=== PATIENT | female | born 1945 | race Caucasian/White ===

== ENCOUNTER 2018-01-31 20:10 | Emergency (ER) | payer MEDICARE ==
[2018-01-31] MEDS: HYDROCODONE/APAP (5/325) TAB PO (20:29)
[2018-01-31] MEDS: ONDANSETRON (ODT) 4 MG TAB ODT (20:29)
== END 2018-01-31 22:01 | disposition home or self-care (01) ==
LOC: E/R 20:10
DX: S06.0X1A Concussion with loss of consciousness of 30 minutes or less, initial encounter (principal); S00.83XA Contusion of other part of head, initial encounter; E11.9 Type 2 diabetes mellitus without complications; W01.10XA Fall on same level from slipping, tripping and stumbling with subsequent striking against unspecified object, initial encounter; Y92.9 Unspecified place or not applicable; Z79.84 Long term (current) use of oral hypoglycemic drugs
CPT/HCPCS: 70450; 72125; 73060; 73130-LT; 99285-25

== ENCOUNTER 2018-02-07 13:55 | Inpatient (IN) | payer MEDICARE ==
[2018-02-07 14:29] LABS: ADD MAN DIFF? NO
[2018-02-07] MEDS: SOD CHLORIDE 0.9% 100 ML (14:29)
[2018-02-07] MEDS: IOHEXOL 100 ML (14:29)
[2018-02-07 14:39] LABS: BASOPHILS % 0.5 % (0.0-2.0); EOSINOPHILS # 0.2 10^3/ul (0.0-0.5); EOSINOPHILS % 3.4 % (0.0-7.0); HEMATOCRIT 37.7 % (37.0-47.0); HEMOGLOBIN 12.2 g/dl (12.0-16.0); LYMPHOCYTES # 2.7 10^3/ul (0.8-2.9); LYMPHOCYTES % 43.2 % (15.0-51.0); MEAN CORPUSCULAR HEMOGLOBIN 28.8 pg (29.0-33.0); MEAN CORPUSCULAR HGB CONC 32.4 g/dl (32.0-37.0); MEAN CORPUSCULAR VOLUME 88.9 fl (82.0-101.0); MEAN PLATELET VOLUME 11.4 fl (7.4-10.4); MONOCYTE # 0.4 10^3/ul (0.3-0.9); MONOCYTES % 7.2 % (0.0-11.0); NEUTROPHIL # 2.8 10^3/ul (1.6-7.5); NEUTROPHILS % 45.5 % (39.0-77.0); PLATELET COUNT 203 10^3/UL (140-415); RED BLOOD COUNT 4.24 10^6/ul (4.20-5.40); RED CELL DISTRIBUTION WIDTH 12.7 % (11.5-14.5)
[2018-02-07 14:39] LABS: WHITE BLOOD COUNT 6.1 10^3/ul (4.8-10.8)
[2018-02-07 14:56] LABS: ANION GAP 16 (8-16); BLOOD UREA NITROGEN 23 mg/dl (7-20); CALCIUM 9.6 mg/dl (8.4-10.2); CARBON DIOXIDE 27 mmol/L (21-31); CHLORIDE 103 mmol/L (97-110); CHOL/HDL RATIO 5.4 RATIO; CHOLESTEROL 223 mg/dl (100-200); CREATINE KINASE 50 IU/L (23-200); CREATININE 0.84 mg/dl (0.44-1.00); GLUCOSE 175 mg/dl (70-220); HDL CHOLESTEROL 41 mg/dl (33-92); LDL CHOLESTEROL,CALCULATED 112 mg/dl; POTASSIUM 4.7 mmol/L (3.5-5.1); SODIUM 141 mmol/L (135-144); TRIGLYCERIDES 351 mg/dl (0-149)
[2018-02-07 15:07] LABS: CK-MB 0.52 ng/ml (0.0-2.4); TROPONIN-I < 0.010 ng/ml (0.000-0.120)
[2018-02-07 15:14] LABS: INR 0.98; PARTIAL THROMBOPLASTIN TIME 27.5 Sec (25.0-35.0); PROTIME 13.1 Sec (11.9-14.9)
[2018-02-07] MEDS: ASPIRIN 325 MG TAB PO (15:35)
[2018-02-07 16:01] LABS: HEMOGLOBIN A1C 10.3 % (0-5.9)
[2018-02-07] MEDS ORDERED: ACETAMINOPHEN 325 MG TAB PO (17:00)
[2018-02-07] MEDS ORDERED: ONDANSETRON 4 MG INJ IV (17:00)
[2018-02-07] MEDS: AMLODIPINE 5 MG TAB PO (18:59)
[2018-02-07] MEDS ORDERED: GLUCAGON 1 MG INJ IM (19:00)
[2018-02-07] MEDS ORDERED: GLUCOSE GEL 15 GRAM TUBE PO ×2 (19:00)
[2018-02-07] MEDS ORDERED: DEXTROSE 50% 50 ML SYRINGE IV ×2 (19:00)
[2018-02-07] MEDS ORDERED: GLUCOSE GEL 15 GRAM TUBE BUCCAL (19:00)
[2018-02-07] MEDS: LOSARTAN 50 MG TAB PO (19:00)
[2018-02-07] MEDS: ATORVASTATIN 20 MG TAB PO (20:42)
[2018-02-07] MEDS: INSULIN ASPART [NOVOLOG] 3 ML PEN SC (20:43)
[2018-02-08] MEDS: ACCU-CHEK XX (02:00)
[2018-02-08] MEDS ORDERED: INSULIN ASPART [NOVOLOG] 3 ML PEN SC (07:55)
[2018-02-08] MEDS: LOSARTAN 50 MG TAB PO (08:05)
[2018-02-08] MEDS: AMLODIPINE 5 MG TAB PO (08:05)
[2018-02-08] MEDS: INSULIN ASPART [NOVOLOG] 3 ML PEN SC ×4 (08:21→22:17)
[2018-02-08] MEDS: ASPIRIN (EC) 81 MG TAB PO (13:25)
[2018-02-08] MEDS: CLOPIDOGREL 75 MG TAB PO (13:25)
[2018-02-08] MEDS: KETOROLAC 30 MG INJ IV (13:40)
[2018-02-08] MEDS: ATORVASTATIN 40 MG TAB PO (21:00)
[2018-02-09] MEDS: ACCU-CHEK XX (02:33)
[2018-02-09 06:37] LABS: ADD MAN DIFF? NO
[2018-02-09 06:45] LABS: WHITE BLOOD COUNT 5.7 10^3/ul (4.8-10.8)
[2018-02-09 06:45] LABS: BASOPHILS % 0.5 % (0.0-2.0); EOSINOPHILS # 0.3 10^3/ul (0.0-0.5); EOSINOPHILS % 4.4 % (0.0-7.0); HEMATOCRIT 35.7 % (37.0-47.0); HEMOGLOBIN 11.9 g/dl (12.0-16.0); LYMPHOCYTES # 2.5 10^3/ul (0.8-2.9); MEAN CORPUSCULAR HEMOGLOBIN 28.7 pg (29.0-33.0); MEAN CORPUSCULAR HGB CONC 33.3 g/dl (32.0-37.0); MEAN CORPUSCULAR VOLUME 86.2 fl (82.0-101.0); MEAN PLATELET VOLUME 11.6 fl (7.4-10.4); MONOCYTE # 0.4 10^3/ul (0.3-0.9); MONOCYTES % 6.6 % (0.0-11.0); NEUTROPHIL # 2.6 10^3/ul (1.6-7.5); NEUTROPHILS % 45.3 % (39.0-77.0); PLATELET COUNT 173 10^3/UL (140-415); RED BLOOD COUNT 4.14 10^6/ul (4.20-5.40); RED CELL DISTRIBUTION WIDTH 12.6 % (11.5-14.5)
[2018-02-09 07:06] LABS: ANION GAP 14 (8-16); BLOOD UREA NITROGEN 20 mg/dl (7-20); CALCIUM 9.4 mg/dl (8.4-10.2); CARBON DIOXIDE 28 mmol/L (21-31); CHLORIDE 102 mmol/L (97-110); CREATININE 0.79 mg/dl (0.44-1.00); GLUCOSE 195 mg/dl (70-220); POTASSIUM 4.5 mmol/L (3.5-5.1); SODIUM 139 mmol/L (135-144)
[2018-02-09] MEDS: INSULIN ASPART [NOVOLOG] 3 ML PEN SC ×4 (08:11→22:34)
[2018-02-09] MEDS: CLOPIDOGREL 75 MG TAB PO (08:51)
[2018-02-09] MEDS: ASPIRIN (EC) 81 MG TAB PO (08:51)
[2018-02-09] MEDS: AMLODIPINE 5 MG TAB PO (08:52)
[2018-02-09] MEDS: LOSARTAN 50 MG TAB PO (08:52)
[2018-02-09] MEDS: ATORVASTATIN 40 MG TAB PO (20:33)
[2018-02-10] MEDS: ACCU-CHEK XX (02:00)
[2018-02-10] MEDS: ACETAMINOPHEN 325 MG TAB PO ×2 (05:28→20:54)
[2018-02-10 06:16] LABS: ADD MAN DIFF? NO
[2018-02-10 06:27] LABS: WHITE BLOOD COUNT 6.1 10^3/ul (4.8-10.8)
[2018-02-10 06:27] LABS: BASOPHIL # 0.1 10^3/ul (0.0-0.1); BASOPHILS % 0.8 % (0.0-2.0); EOSINOPHILS # 0.2 10^3/ul (0.0-0.5); EOSINOPHILS % 3.7 % (0.0-7.0); HEMATOCRIT 36.3 % (37.0-47.0); HEMOGLOBIN 12.2 g/dl (12.0-16.0); LYMPHOCYTES # 2.6 10^3/ul (0.8-2.9); LYMPHOCYTES % 41.5 % (15.0-51.0); MEAN CORPUSCULAR HEMOGLOBIN 29.5 pg (29.0-33.0); MEAN CORPUSCULAR HGB CONC 33.6 g/dl (32.0-37.0); MEAN CORPUSCULAR VOLUME 87.7 fl (82.0-101.0); MEAN PLATELET VOLUME 11.9 fl (7.4-10.4); MONOCYTE # 0.4 10^3/ul (0.3-0.9); MONOCYTES % 6.2 % (0.0-11.0); NEUTROPHIL # 2.9 10^3/ul (1.6-7.5); NEUTROPHILS % 47.6 % (39.0-77.0); PLATELET COUNT 191 10^3/UL (140-415); RED BLOOD COUNT 4.14 10^6/ul (4.20-5.40); RED CELL DISTRIBUTION WIDTH 12.4 % (11.5-14.5)
[2018-02-10 06:54] LABS: ANION GAP 13 (8-16); BLOOD UREA NITROGEN 19 mg/dl (7-20); CALCIUM 9.7 mg/dl (8.4-10.2); CARBON DIOXIDE 26 mmol/L (21-31); CHLORIDE 103 mmol/L (97-110); CREATININE 0.73 mg/dl (0.44-1.00); GLUCOSE 247 mg/dl (70-220); POTASSIUM 4.4 mmol/L (3.5-5.1); SODIUM 138 mmol/L (135-144)
[2018-02-10] MEDS: INSULIN ASPART [NOVOLOG] 3 ML PEN SC ×4 (08:03→20:53)
[2018-02-10] MEDS: CLOPIDOGREL 75 MG TAB PO (08:06)
[2018-02-10] MEDS: ASPIRIN (EC) 81 MG TAB PO (08:06)
[2018-02-10] MEDS: AMLODIPINE 5 MG TAB PO (08:07)
[2018-02-10] MEDS: LOSARTAN 50 MG TAB PO (08:07)
[2018-02-10] MEDS ORDERED: POLYETHYLENE GLYCOL 17 GM PACKET PO (11:30)
[2018-02-10] MEDS: ATORVASTATIN 40 MG TAB PO (20:54)
[2018-02-11 07:02] LABS: ANION GAP 13 (8-16); BLOOD UREA NITROGEN 20 mg/dl (7-20); CALCIUM 9.5 mg/dl (8.4-10.2); CARBON DIOXIDE 26 mmol/L (21-31); CHLORIDE 103 mmol/L (97-110); CREATININE 0.73 mg/dl (0.44-1.00); GLUCOSE 225 mg/dl (70-220); POTASSIUM 4.2 mmol/L (3.5-5.1); SODIUM 138 mmol/L (135-144)
[2018-02-11] MEDS: CLOPIDOGREL 75 MG TAB PO (08:14)
[2018-02-11] MEDS: AMLODIPINE 5 MG TAB PO (08:15)
[2018-02-11] MEDS: ASPIRIN (EC) 81 MG TAB PO (08:15)
[2018-02-11] MEDS: LOSARTAN 50 MG TAB PO (08:15)
[2018-02-11] MEDS: INSULIN ASPART [NOVOLOG] 3 ML PEN SC ×4 (08:20→20:38)
[2018-02-11] MEDS: ATORVASTATIN 40 MG TAB PO (20:36)
[2018-02-11] MEDS: ACETAMINOPHEN 325 MG TAB PO (20:44)
[2018-02-12] MEDS: ASPIRIN (EC) 81 MG TAB PO (09:01)
[2018-02-12] MEDS: CLOPIDOGREL 75 MG TAB PO (09:01)
[2018-02-12] MEDS: LOSARTAN 50 MG TAB PO (09:02)
[2018-02-12] MEDS: AMLODIPINE 5 MG TAB PO (09:02)
[2018-02-12] MEDS: INSULIN ASPART [NOVOLOG] 3 ML PEN SC ×2 (09:07→12:40)
[2018-02-12] MEDS: ACETAMINOPHEN 325 MG TAB PO (12:41)
== END 2018-02-12 14:19 | disposition home or self-care (01) | DRG 69 ==
LOC: E/R 13:55 → TEL 16:38
PROVIDERS: Internal Medicine
DX: G45.9 Transient cerebral ischemic attack, unspecified (principal); E11.65 Type 2 diabetes mellitus with hyperglycemia; E88.81 Metabolic syndrome and other insulin resistance; E78.5 Hyperlipidemia, unspecified; D64.9 Anemia, unspecified; I10 Essential (primary) hypertension; Z79.84 Long term (current) use of oral hypoglycemic drugs; Z91.14 Patient's other noncompliance with medication regimen; Z91.81 History of falling; Z91.11 Patient's noncompliance with dietary regimen
CPT/HCPCS: 36415; 70450; 70496; 70498; 70551; 71045; 80048; 80061; 82550; 82553; 82962; 83036; 84484; 85025; 85610; 85730; 92610; 93306; 97161; 99291-25; G0378

== ENCOUNTER 2018-08-11 11:07 | Emergency (ER) | payer MEDICARE | END 2018-08-11 11:45 | disposition home or self-care (01) | LOC: E/R 11:07 | DX: I10 Essential (primary) hypertension (principal); R40.2142 Coma scale, eyes open, spontaneous, at arrival to emergency department; R40.2362 Coma scale, best motor response, obeys commands, at arrival to emergency department; R40.2252 Coma scale, best verbal response, oriented, at arrival to emergency department; Z79.01 Long term (current) use of anticoagulants; Z79.84 Long term (current) use of oral hypoglycemic drugs | CPT/HCPCS: 99282 ==